=== PATIENT | male | born 1935 | race Caucasian/White ===

== ENCOUNTER 2016-07-06 21:07 | Inpatient (IN) | payer MEDICARE, BC ==
[~2016-07-06] VITALS: Ht 177.8 cm; Wt 200.5 kg
[~2016-07-06 21:07] MED LIST: ALBUTEROL0.83 MG/ML IH; ALBUTEROL1.25 MG/3 IH; ALEVE 220MG220 MG PO; AMBIEN 5MG TABLE5 MG PO; ASPIR-LOW81 MG PO; ASPIRIN 32325 MG/TA1 PO; ASPIRIN 32325 MG/TAB PO; ASPIRIN 81M81 MG/TA2 PO; ASPIRIN E.C. 8181 MG PO; ATROVENT I0.2 MG/1 M IH; ATROVENT0.018 MG/A IH; AVAPRO PO; AVAPRO300 M1 PO; AVAPRO300 MG PO; AVAPRO75 MG PO; BUMEX2 MG PO; BYSTOLIC PO; BYSTOLIC10 MG PO; BYSTOLIC5 MG PO; CALCIUM 500500 M2 PO; CALCIUM 6001 TA1 PO; CALCIUM 600600 MG PO; CALCIUM CARBON500 M1 PO; CALCIUM600 M2 PO; CALTRATE 600600 MG PO; CARDI-OMEGA1000 MG; CARDIZEM CD 12120 MG PO; CARDIZEM CD 18180 MG PO; CARDIZEM CD360 MG PO; CARTIA PO; CENTRUM SILVER1 TA1 PO; CEPHALEXIN500 M1 PO; CLONAZEPAM PO; COLACE 100100 MG/CAP PO; COLACE100 MG/10 PO; COZAAR100 MG PO; CYMBALTA 20MG20 MG PO; CYMBALTA30 MG PO; DEPO-TESTOS100 MG/ML IM; DEPO-TESTOS200 MG/M1 IM; DEPO-TESTOS200 MG/ML IM; DIOVAN160 M1 PO; DOXYCYCLINE 10100 MG PO; EFFEXOR XR150 MG PO; EFFEXOR-XR150 MG PO; ELIQUIS 5MG PO; FIBER CHOICE1 CTB PO; FIBER0.52 GM PO; FISH OIL 1000MG1 CAP PO; FISH OIL CONC1000 MG PO; FISH OIL CONCEN1 SG1 PO; FISH OIL CONCEN1 SGL PO; FLOMAX 0.40.4 MG/CAP PO; FOLIC ACID0.4 MG PO; FORADIL IH; FUROSEMIDE PO; GABAPENTIN PO; GLUCOSAMINE PO; HEPARIN LOCK FLU5 M1 IV; HUMULIN 70/3100 U/ML SC; HUMULIN 70/3100 U/ML SQ; HUMULIN N 10100 U/ML SQ; HUMULIN N100 U/ML SQ; HUMULIN R 10100 U/ML SQ; HUMULIN R100 U/ML SQ; HYDROCHLOROTHIA25 MG PO; HYZAAR 25 MG-101 TAB PO; IMDUR 30MG30 MG/TAB PO; INSULIN N (N100 U/ML SQ; INSULIN R (N100 U/ML SQ; IRON65 M1 PO; KLONOPIN 0.5MG0.5 MG PO; KLONOPIN1 MG PO; KLOR-CON M2020 MEQ; KLOR-CON M2020 MEQ PO; LASIX 20MG TABL20 MG PO; LASIX 40MG TABL40 MG PO; LEVAQUIN 750MG750 M1 PO; LEVOTHROID0.175 MG PO; LEVOTHYROXIN0.175 MG PO; LIPITOR20 MG PO; LIPITOR80 MG PO; LOVASTATIN20 MG PO; LYRICA 100MG C100 M1 PO; LYRICA 50MG CAP50 MG PO; MASON NATURAL1200 MG PO; MELATONIN5 M1 SL; MILLIPRED5 MG PO; MONODOX100 PO; MULTI VITAMINS1 TAB PO; MULTIPLE VITAMI1 CAP PO; MULTIVITAMIN1 CTB PO; MVI PO; NATURAL IRON65 MG PO; NEURONTIN300 MG/CAP PO; NIRAVAM0.25 MG; NORCO 325 MG-101 TAB PO; NORCO 325 MG-51 TAB PO; NS INT FLUSH 1010 ML IV; OMEGA-3 FISH1200 MG PO; PERFOROMIS20 MCG/2 M IH; PLAVIX 75MG TAB75 MG PO; PREDNISONE 2.52.5 MG PO; PREDNISONE 5MG5 MG PO; PREDNISONE1 MG PO; PREDNISONE20 MG PO; PRIL40; PRIL40 PO; PRILOSEC 20MG20 MG PO; PRILOSEC PO; PROAIR HFA0.09 MG/AC IH; PROTONIX20 MG PO; PSYLLIUM HUSK1 POW; PULMICORT0.5 MG/2 M IH; ROXICODONE 55 MG/TAB PO; RT SPIRIVA18 MCG IH; SIMVASTATIN40 MG PO; SIMVASTATIN80 MG PO; SPIRIVA INH IH; STOOL SOFTENER100 M2 PO; SYNTHROID0.175 MG PO; TEFLARO 60600 MG/VIA IV; TESTOSTERON200 MG/M1 IM; THEO-24 30300 MG/CAP PO; THEO-DUR 3300 MG/TAB PO; THEODUR 300MG PO; THEOPHYLLINE PO; THEOPHYLLINE300 MG PO; TYLENOL 325MG325 MG PO; VENTOLIN0.09 MG IH; VERELAN240 MG PO; VITAMIN C500 MG PO; XANAX .25M0.25 MG/TA PO; XANAX 0.5MG0.5 MG PO; XOPENEX 1.1.25 MG/3 IH; ZANTAC 7575 MG PO; [UNRECOGNIZED DRUG - OTHER] PO
[2016-07-06] MEDS ORDERED: ULTRAM 50MG TAB50 MG PO (21:38)
[2016-07-06 22:41] LABS: HEMOGLOBIN 14.7 g/dl (13.5-18.0); MEAN CELL VOLUME 94 fl (80.0-100.0); MEAN CORPUSCULAR HEMOGLOBIN 32 pg (27.0-31.0); MEAN CORPUSCULAR HGB CONC 34 g/dl (33.0-37.0); MEAN PLATELET VOLUME 10.2 fl (7.4-10.4); PLATELET COUNT 244 K/mm3 (130-400); REDCELL DISTRIBUTION WIDTH-CV 13.5 % (11.5-14.5); WHITE BLOOD COUNT 17.3 K/mm3 (4.8-10.8)
[2016-07-06 22:50] LABS: ADD PATHOLOGY DIFF REVIEW NO
[2016-07-06 22:51] LABS: CALCIUM 9.6 mg/dL (8.4-10.2); CREATININE, serum 1.37 mg/dL (0.66-1.25); POTASSIUM 3.9 mmol/L (3.4-5.0)
[2016-07-06 23:44] VITALS: BP 131/52; PULSE 71; TEMP 98.5
[2016-07-07] VITALS (10 sets, daily range): BP systolic 100–145; BP diastolic 36–61; PULSE 62–89; TEMP 97.4–100
[2016-07-07 00:16] LABS: BAND 8 % (0-10); EOSINOPHIL 1 % (0-4); NEUTROPHILS 69 % (42.0-75.2); TOTAL CELLS COUNTED 100
[2016-07-07] MEDS ORDERED: THEO-DUR 3300 MG/TAB PO (13:13)
[2016-07-08 02:00] VITALS: BP 120/69; PULSE 94; TEMP 98.3
[2016-07-08 06:07] VITALS: BP 133/49; PULSE 71; TEMP 98.8
[2016-07-08 07:35] LABS: HEMATOCRIT 38.2 % (42.0-52.0); MEAN CELL VOLUME 97 fl (80.0-100.0); MEAN CORPUSCULAR HEMOGLOBIN 32 pg (27.0-31.0); MEAN CORPUSCULAR HGB CONC 33 g/dl (33.0-37.0); MEAN PLATELET VOLUME 10.2 fl (7.4-10.4); PLATELET COUNT 232 K/mm3 (130-400); RED BLOOD COUNT 3.94 M/mm3 (4.20-5.60); REDCELL DISTRIBUTION WIDTH-CV 13.5 % (11.5-14.5)
[2016-07-08 08:04] LABS: CREATININE, serum 1.11 mg/dL (0.66-1.25); POTASSIUM 3.8 mmol/L (3.4-5.0)
[2016-07-08 08:38] LABS: HEMOGLOBIN 12.5 g/dl (13.5-18.0)
[2016-07-08 08:40] LABS: ADD PATHOLOGY DIFF REVIEW NO
[2016-07-08 09:34] VITALS: BP 111/49; PULSE 70; TEMP 97.4
[2016-07-08 10:35] LABS: BAND 5 % (0-10); BASOPHIL 1 % (0-2); EOSINOPHIL 1 % (0-4); NEUTROPHILS 66 % (42.0-75.2); TOTAL CELLS COUNTED 100
[2016-07-08 10:37] LABS: PLATELET ESTIMATE NORMAL (NORMAL)
[2016-07-08 13:29] VITALS: BP 111/49; PULSE 72; TEMP 97.5
[2016-07-08 17:58] VITALS: BP 126/52; PULSE 83; TEMP 98.3
[2016-07-08 23:00] VITALS: BP 115/55; PULSE 98; TEMP 97.5
[2016-07-09] VITALS (9 sets, daily range): BP systolic 100–151; BP diastolic 34–57; PULSE 69–83; TEMP 96.9–98.8
[2016-07-09 07:39] LABS: BASO # 0.1 (0.0-0.2); BASO % 0.7 % (0.0-2.0); EOS # 0.3 (0.0-0.7); EOS % 2.8 % (0-4.0); GRAN # 7.4 (1.4-6.5); GRAN % 67.6 % (42.2-75.2); HEMATOCRIT 38.1 % (42.0-52.0); HEMOGLOBIN 12.5 g/dl (13.5-18.0); LYMPH # 1.7 (1.2-3.4); LYMPH % 15.7 % (20.0-51.0); MEAN CELL VOLUME 97 fl (80.0-100.0); MEAN CORPUSCULAR HEMOGLOBIN 32 pg (27.0-31.0); MEAN CORPUSCULAR HGB CONC 33 g/dl (33.0-37.0); MEAN PLATELET VOLUME 10.3 fl (7.4-10.4); MONO # 1.4 (0.1-0.6); MONO % 12.6 % (1.7-9.3); PLATELET COUNT 211 K/mm3 (130-400); RED BLOOD COUNT 3.93 M/mm3 (4.20-5.60); REDCELL DISTRIBUTION WIDTH-CV 13.3 % (11.5-14.5); WHITE BLOOD COUNT 10.9 K/mm3 (4.8-10.8)
[2016-07-09 08:08] LABS: CALCIUM 8.8 mg/dL (8.4-10.2); CREATININE, serum 1.04 mg/dL (0.66-1.25); POTASSIUM 3.7 mmol/L (3.4-5.0)
[2016-07-09] MEDS ORDERED: NORCO 325 MG-101 TAB PO (16:35)
[2016-07-10 01:17] VITALS: BP 148/47; PULSE 89; TEMP 98.7
[2016-07-10 06:00] VITALS: BP 145/50; PULSE 84; TEMP 97.9
[2016-07-10 09:40] VITALS: BP 128/48; PULSE 75; TEMP 97.2
[2016-07-11] MEDS ORDERED: CLEOCIN HCL300 MG PO (17:56)
== END 2016-07-10 11:18 | disposition home health service (06) | DRG 580 ==
LOC: COL.ER 21:07 → SURG 22:29
PROVIDERS: Emergency Medicine; Internal Medicine; Physician Assistant; Surgery
PROC: 0H99XZX Drainage of Perineum Skin, External Approach, Diagnostic (ICD-10-PCS; principal; 2016-07-07 13:00)
PROC: 0T9B80Z Drainage of Bladder with Drainage Device, Via Natural or Artificial Opening Endoscopic (ICD-10-PCS; 2016-07-08)
PROC: 0H99XZZ Drainage of Perineum Skin, External Approach (ICD-10-PCS; 2016-07-09 14:00)
DX: L02.215 Cutaneous abscess of perineum (principal); N17.9 Acute kidney failure, unspecified; E27.40 Unspecified adrenocortical insufficiency; Z68.43 Body mass index [BMI] 50.0-59.9, adult; B95.7 Other staphylococcus as the cause of diseases classified elsewhere; E11.65 Type 2 diabetes mellitus with hyperglycemia; E11.42 Type 2 diabetes mellitus with diabetic polyneuropathy; I25.10 Atherosclerotic heart disease of native coronary artery without angina pectoris; I10 Essential (primary) hypertension; R33.9 Retention of urine, unspecified; I87.2 Venous insufficiency (chronic) (peripheral); J44.9 Chronic obstructive pulmonary disease, unspecified; Z85.46 Personal history of malignant neoplasm of prostate; Z95.5 Presence of coronary angioplasty implant and graft; Z87.891 Personal history of nicotine dependence; Z95.810 Presence of automatic (implantable) cardiac defibrillator; I48.91 Unspecified atrial fibrillation; E66.01 Morbid (severe) obesity due to excess calories; Z79.4 Long term (current) use of insulin
CPT/HCPCS: 99222; 99232-AI; C1769; J0360; J1170; J1644; J1815; J2270; J2405; J2704; J2765; J3010; J3370; J7030; J7040; J7512

== ENCOUNTER 2016-07-11 11:51 | Observation (INO) | payer MEDICARE, BC ==
[~2016-07-11] VITALS: Ht 177.8 cm; Wt 175.0 kg
[~2016-07-11 11:51] MED LIST changes: +ULTRAM 50MG TAB50 MG PO
[2016-07-11 12:24] LABS: BASO # 0.1 (0.0-0.2); BASO % 0.6 % (0.0-2.0); EOS # 0.2 (0.0-0.7); EOS % 1.6 % (0-4.0); GRAN # 11.2 (1.4-6.5); HEMATOCRIT 39.8 % (42.0-52.0); HEMOGLOBIN 13.3 g/dl (13.5-18.0); LYMPH # 0.8 (1.2-3.4); MEAN CELL VOLUME 95 fl (80.0-100.0); MEAN CORPUSCULAR HEMOGLOBIN 32 pg (27.0-31.0); MEAN CORPUSCULAR HGB CONC 33 g/dl (33.0-37.0); MEAN PLATELET VOLUME 9.5 fl (7.4-10.4); MONO # 1.5 (0.1-0.6); MONO % 10.9 % (1.7-9.3); PLATELET COUNT 259 K/mm3 (130-400); RED BLOOD COUNT 4.18 M/mm3 (4.20-5.60); REDCELL DISTRIBUTION WIDTH-CV 13.6 % (11.5-14.5)
[2016-07-11 12:29] LABS: PH 6 (5-8); SQUAMOUS EPITHELIAL 0-2 /hpf; URINE APPEARANCE Clear; URINE BACTERIA Rare /hpf; URINE BILIRUBIN Negative (NEGATIVE); URINE BLOOD 3+ (NEGATIVE); URINE COLOR Straw; URINE GLUCOSE Negative (NEGATIVE); URINE KETONE Negative (NEGATIVE); URINE RBC >50 /hpf; URINE UROBILINOGEN Negative (NEGATIVE)
[2016-07-11 13:20] LABS: ADJUSTED CALCIUM 9.6 mg/dL (8.4-10.2); ALBUMIN 3.2 gm/dL (3.5-5.0); CREATININE, serum 1.04 mg/dL (0.66-1.25); POTASSIUM 3.7 mmol/L (3.4-5.0)
[2016-07-11 15:13] VITALS: BP 158/88; PULSE 74; TEMP 97.5
[2016-07-11] MEDS ORDERED: CLEOCIN HCL300 MG PO (17:56)
[2016-07-11 20:24] LABS: ALLEN TEST YES; ALLENS TEST RESULT PASS; ARTERIAL BLD GAS O2 SATURATION 97.2 % (92-100); ARTERIAL BLOOD GAS BASE EXCESS 8.1 (-2-2); ARTERIAL BLOOD GAS HCO3 30.9 meq/L (22-26); ARTERIAL BLOOD GAS PO2 97.4 mmHg (80-100); ARTERIAL BLOOD GAS pH 7.54 (7.35-7.45); ATS? YES
[2016-07-11 22:11] VITALS: BP 184/71; PULSE 57; TEMP 97.5
[2016-07-12 05:29] VITALS: BP 140/62; PULSE 105; TEMP 98.4
[2016-07-12 08:12] LABS: HEMOGLOBIN 13.7 g/dl (13.5-18.0); MEAN CELL VOLUME 96 fl (80.0-100.0); MEAN CORPUSCULAR HEMOGLOBIN 31 pg (27.0-31.0); MEAN CORPUSCULAR HGB CONC 33 g/dl (33.0-37.0); MEAN PLATELET VOLUME 9.9 fl (7.4-10.4); PLATELET COUNT 281 K/mm3 (130-400); RED BLOOD COUNT 4.36 M/mm3 (4.20-5.60); REDCELL DISTRIBUTION WIDTH-CV 13.5 % (11.5-14.5); WHITE BLOOD COUNT 14.7 K/mm3 (4.8-10.8)
[2016-07-12 08:25] LABS: ADD PATHOLOGY DIFF REVIEW NO
[2016-07-12 08:43] LABS: ADJUSTED CALCIUM 9.6 mg/dL (8.4-10.2); ALBUMIN 3.2 gm/dL (3.5-5.0); BILIRUBIN,TOTAL 1.1 mg/dL (0.0-1.0); CREATININE, serum 1.02 mg/dL (0.66-1.25); POTASSIUM 3.4 mmol/L (3.4-5.0); TOTAL PROTEIN 6.5 gm/dL (6.4-8.2)
[2016-07-12 08:57] LABS: BAND 6 % (0-10); BASOPHIL 1 % (0-2); EOSINOPHIL 2 % (0-4); METAMYELOCYTE 1 % (0-0); NEUTROPHILS 68 % (42.0-75.2); PLATELET ESTIMATE NORMAL (NORMAL); TOTAL CELLS COUNTED 100
[2016-07-12 09:02] VITALS: BP 153/78; PULSE 81; TEMP 97.1
[2016-07-12 13:29] VITALS: BP 130/48; PULSE 90; TEMP 97.8
[2016-07-12 17:47] VITALS: BP 97/41; PULSE 69; TEMP 96.6
[2016-07-12 21:04] VITALS: BP 112/47; PULSE 70; TEMP 97.8
[2016-07-13 02:02] VITALS: BP 128/56; PULSE 75; TEMP 98.6
[2016-07-13 06:36] VITALS: BP 113/42; PULSE 77; TEMP 98.5
[2016-07-13 07:28] LABS: BASO # 0.1 (0.0-0.2); BASO % 0.5 % (0.0-2.0); EOS # 0.4 (0.0-0.7); EOS % 3.7 % (0-4.0); GRAN # 8.1 (1.4-6.5); GRAN % 68.9 % (42.2-75.2); LYMPH # 1.5 (1.2-3.4); LYMPH % 12.8 % (20.0-51.0); MEAN CELL VOLUME 97 fl (80.0-100.0); MEAN CORPUSCULAR HEMOGLOBIN 31 pg (27.0-31.0); MEAN CORPUSCULAR HGB CONC 33 g/dl (33.0-37.0); MEAN PLATELET VOLUME 9.8 fl (7.4-10.4); MONO # 1.5 (0.1-0.6); MONO % 13.2 % (1.7-9.3); PLATELET COUNT 280 K/mm3 (130-400); RED BLOOD COUNT 4.14 M/mm3 (4.20-5.60); REDCELL DISTRIBUTION WIDTH-CV 13.7 % (11.5-14.5); WHITE BLOOD COUNT 11.7 K/mm3 (4.8-10.8)
[2016-07-13 09:19] VITALS: BP 110/34; PULSE 78; TEMP 98.2
[2016-07-13 12:57] VITALS: BP 99/53; PULSE 70
[2016-07-13 13:56] VITALS: BP 98/37; PULSE 69; TEMP 97.5
[2016-07-13] MEDS ORDERED: PERCOCET 325 MG1 TA2 PO (15:51)
[2016-07-13] MEDS ORDERED: XANAX 0.5MG0.5 MG PO (15:51)
== END 2016-07-13 17:02 ==
LOC: COL.ER 11:51 → SURG 13:45 → COL.ER 13:47 → SURG 07-13 17:02
PROVIDERS: Emergency Medicine; Physician Assistant; Surgery
DX: R41.0 Disorientation, unspecified (principal); D64.9 Anemia, unspecified; I10 Essential (primary) hypertension; Z87.891 Personal history of nicotine dependence; E11.42 Type 2 diabetes mellitus with diabetic polyneuropathy; I48.91 Unspecified atrial fibrillation; Z79.01 Long term (current) use of anticoagulants; I25.10 Atherosclerotic heart disease of native coronary artery without angina pectoris; J44.9 Chronic obstructive pulmonary disease, unspecified; C76.52 Malignant neoplasm of left lower limb; Z66 Do not resuscitate; I87.2 Venous insufficiency (chronic) (peripheral); G47.33 Obstructive sleep apnea (adult) (pediatric); K21.9 Gastro-esophageal reflux disease without esophagitis; E27.40 Unspecified adrenocortical insufficiency; E03.9 Hypothyroidism, unspecified; N40.0 Benign prostatic hyperplasia without lower urinary tract symptoms; Z95.0 Presence of cardiac pacemaker; Z85.828 Personal history of other malignant neoplasm of skin; E66.01 Morbid (severe) obesity due to excess calories
CPT/HCPCS: G0378; J1815; J2270; J7030

== ENCOUNTER → 2016-07-17 | Outpatient (REF) ==
[~2016-07-17] MED LIST changes: +CLEOCIN HCL300 MG PO; +PERCOCET 325 MG1 TA2 PO
[2016-07-17 18:54] LABS: BASO # 0.1 (0.0-0.2); BASO % 0.9 % (0.0-2.0); EOS # 0.6 (0.0-0.7); EOS % 4.9 % (0-4.0); GRAN # 8.5 (1.4-6.5); GRAN % 71.9 % (42.2-75.2); HEMATOCRIT 40.4 % (42.0-52.0); HEMOGLOBIN 13.2 g/dl (13.5-18.0); LYMPH # 1.2 (1.2-3.4); LYMPH % 10.5 % (20.0-51.0); MEAN CELL VOLUME 97 fl (80.0-100.0); MEAN CORPUSCULAR HEMOGLOBIN 32 pg (27.0-31.0); MEAN CORPUSCULAR HGB CONC 33 g/dl (33.0-37.0); MEAN PLATELET VOLUME 9.8 fl (7.4-10.4); MONO # 1.3 (0.1-0.6); MONO % 11.3 % (1.7-9.3); PLATELET COUNT 323 K/mm3 (130-400); RED BLOOD COUNT 4.17 M/mm3 (4.20-5.60); REDCELL DISTRIBUTION WIDTH-CV 13.9 % (11.5-14.5); WHITE BLOOD COUNT 11.8 K/mm3 (4.8-10.8)
[2016-07-17 19:21] LABS: CREATININE, serum 1.14 mg/dL (0.66-1.25); POTASSIUM 3.9 mmol/L (3.4-5.0)
== END ==
LOC: ZCOL.LAB 18:45
PROVIDERS: Family Medicine
DX: Z01.89 Encounter for other specified special examinations (principal)

== ENCOUNTER → 2016-07-28 | Outpatient (CLI) | payer MEDICARE, BC ==
[2016-07-28 22:05] LABS: PH 6 (5-8); SQUAMOUS EPITHELIAL None Seen /hpf; URINE APPEARANCE Cloudy; URINE BACTERIA Rare /hpf; URINE BILIRUBIN Negative (NEGATIVE); URINE BLOOD 3+ (NEGATIVE); URINE COLOR Yellow; URINE GLUCOSE Negative (NEGATIVE); URINE KETONE Negative (NEGATIVE); URINE RBC >50 /hpf; URINE UROBILINOGEN Negative (NEGATIVE); URINE WBC 20-50 /hpf
== END ==
LOC: ZCOL.LAB 20:20
PROVIDERS: Family Medicine
DX: N39.0 Urinary tract infection, site not specified (principal)

== ENCOUNTER → 2016-08-17 | Outpatient (CLI) | payer MEDICARE, BC ==
[2016-08-17 22:37] LABS: PH 7 (5-8); SQUAMOUS EPITHELIAL 0-2 /hpf; URINE APPEARANCE Turbid; URINE BACTERIA Rare /hpf; URINE BILIRUBIN Negative (NEGATIVE); URINE BLOOD 3+ (NEGATIVE); URINE COLOR Yellow; URINE GLUCOSE Negative (NEGATIVE); URINE KETONE Negative (NEGATIVE); URINE RBC >50 /hpf; URINE UROBILINOGEN Negative (NEGATIVE); URINE WBC >50 /hpf
== END ==
LOC: ZCOL.LAB 22:07
PROVIDERS: Family Medicine
DX: Z01.89 Encounter for other specified special examinations (principal)

== ENCOUNTER → 2017-06-01 | Outpatient (CLI) | payer MEDICARE, BC ==
[2017-06-01 15:23] LABS: COLLECTION METHOD CLEAN CATCH
[2017-06-01 15:33] LABS: MUCOUS Present /lpf; PH 6 (5-8); SQUAMOUS EPITHELIAL 0-2 /hpf; URINE APPEARANCE Hazy; URINE BACTERIA Occasional /hpf; URINE BILIRUBIN Negative (NEGATIVE); URINE BLOOD Negative (NEGATIVE); URINE COLOR Yellow; URINE GLUCOSE Negative (NEGATIVE); URINE KETONE Negative (NEGATIVE); URINE LEUKOCYTE ESTERASE 2+ (NEGATIVE); URINE NITRATE Negative (NEGATIVE); URINE PROTEIN(semi-quant) Negative (NEGATIVE); URINE UROBILINOGEN Negative (NEGATIVE); URINE WBC >50 /hpf
== END ==
LOC: ZCOL.LAB 11:20
PROVIDERS: Family Medicine
DX: Z01.89 Encounter for other specified special examinations (principal)

== ENCOUNTER → 2017-08-18 | Outpatient (CLI) | payer MEDICARE, BC ==
[2017-08-18 22:32] LABS: HEMOGLOBIN 13.7 g/dl (13.5-18.0); MEAN CELL VOLUME 98 fl (80.0-100.0); MEAN CORPUSCULAR HEMOGLOBIN 32 pg (27.0-31.0); MEAN CORPUSCULAR HGB CONC 33 g/dl (33.0-37.0); MEAN PLATELET VOLUME 10.4 fl (7.4-10.4); PLATELET COUNT 263 K/mm3 (130-400); RED BLOOD COUNT 4.28 M/mm3 (4.20-5.60); REDCELL DISTRIBUTION WIDTH-CV 13.3 % (11.5-14.5)
[2017-08-18 22:38] LABS: ALBUMIN 3.3 gm/dL (3.5-5.0); BILIRUBIN,TOTAL 0.2 mg/dL (0.0-1.0); CALCIUM 9.3 mg/dL (8.4-10.2); CREATININE, serum 0.93 mg/dL (0.66-1.25); POTASSIUM 3.8 mmol/L (3.4-5.0); TOTAL PROTEIN 6.3 gm/dL (6.4-8.2)
== END ==
LOC: ZCOL.LAB 22:26
PROVIDERS: Family Medicine
DX: R07.9 Chest pain, unspecified (principal); R06.02 Shortness of breath; M79.605 Pain in left leg; M79.604 Pain in right leg

== ENCOUNTER → 2017-10-19 | Outpatient (CLI) | payer MEDICARE, BC ==
[2017-10-19 16:42] LABS: CALCIUM 9.2 mg/dL (8.4-10.2); CREATININE, serum 0.85 mg/dL (0.66-1.25); POTASSIUM 3.9 mmol/L (3.4-5.0)
== END ==
LOC: ZCOL.LAB 15:24
PROVIDERS: Family Medicine
DX: R33.9 Retention of urine, unspecified (principal)